=== PATIENT | female | born 2000 | race Caucasian/White ===

== ENCOUNTER → 2020-05-19 10:57 | Outpatient (BNVA) | payer OTHER, SELFPAY | PROVIDERS: PCP Internal Medicine; Visit Provider Advanced Practice Midwife | DX: Z34.90 Encounter for supervision of normal pregnancy, unspecified, unspecified trimester (principal); Z3A.00 Weeks of gestation of pregnancy not specified | CPT/HCPCS: 99211 ==

== ENCOUNTER 2020-05-20 15:06 | Outpatient (REF) | payer OTHER, SELFPAY ==
--- NOTE | 2020-05-20 15:12 | US_ITS ---
EXAMINATION: US OB LIMITED. CLINICAL INFORMATION: Unknown LMP, dating. COMPARISON: None. TECHNIQUE: Routine transabdominal imaging of pelvis is performed. FINDINGS: There is a single live intrauterine fetus in cephalic presentation. heart rate measures 1 44 bpm. motion visualized. On biometry, BPD measures 3.37 cm corresponding to 16 weeks 4 days. Head circumference measures 12.52 cm corresponding 16 weeks and 3 days. Abdominal circumference measures 10.66 cm corresponding 16 weeks 5 days. Femoral length measures 1.96 cm corresponding to 15 weeks 6 days. The composite ultrasound gestational age measures 16 weeks 3 days and NIKKI of 11/01/2020. Estimated weight is 149 g/0 lb 5 oz. Placenta is anterior, grade 0. The right ovary measures 2.8 x 1.5 x 2.5 cm and appears unremarkable. Left ovary measures 2.3 x 1.7 x 2.5 cm and appears unremarkable. US/US OB limited IMPRESSION: Single live intrauterine fetus in cephalic presentation with a ultrasound gestational age of 16 weeks 3 days and NIKKI of 11/01/2020.
== END 2020-05-20 15:07 | disposition home or self-care (01) ==
LOC: HO.US 15:06
PROVIDERS: Visit Provider Advanced Practice Midwife
DX: Z34.90 Encounter for supervision of normal pregnancy, unspecified, unspecified trimester (principal)
CPT/HCPCS: 76815

== ENCOUNTER 2020-05-29 13:48 | Outpatient (REF) | payer OTHER, SELFPAY ==
[2020-05-29 16:04] LABS: MANUAL DIFF FLAG NO
[2020-05-29 16:11] LABS: Basophils Percent Auto 0.3 % (0-2); Eosinophils Absolute Auto 0.1 X10*3/uL (0.0-0.4); Eosinophils Percent Auto 1.3 % (0-4); Hematocrit 36.1 % (37-47); Hemoglobin 11.7 g/dl (12.0-16.0); Imm Gran Abs Auto 0.04 X10*3/uL (0.00-0.03); Imm Gran Pct Auto 0.5 % (0.0-0.4); Lymphocytes Absolute Auto 2.2 X10*3/uL (1.2-4.9); Lymphocytes Percent Auto 25.8 % (20-40); Mean Corpuscular HGB Conc 32.4 g/dl (31.0-35.0); Mean Corpuscular Hemoglobin 28.6 pg (27.0-33.0); Mean Corpuscular Volume 88.3 fL (80-98); Mean Platelet Volume 9.6 fL (9.4-12.3); Monocytes Absolute Auto 0.7 X10*3/uL (0.1-1.2); Monocytes Percent Auto 7.6 % (2-11); Neutrophils Absolute Auto 5.6 X10*3/uL (2.0-8.3); Neutrophils Percent Auto 64.5 % (45-73); Platelet Count 275 X10*3/uL (160-400); Red Blood Count 4.09 X10*6/uL (4.20-5.50); Red Cell Distribution Width 13.8 % (11.0-16.0); White Blood Count 8.7 X10*3/uL (4.8-10.8)
[2020-05-29 16:48] LABS: Amphetamine Screen Urine Not Detected (Not Detect); Barbiturates, Urine Not Detected (Not Detect); Benzodiazepines Screen Urine Not Detected (Not Detect); Cannabinoid Screen Urine Not Detected (Not Detect); Cocaine Screen Urine Not Detected (Not Detect); Opiate Screen Urine Not Detected (Not Detect); Phencyclidine Screen Urine Not Detected (Not Detect)
[2020-05-29 16:56] LABS: Syphilis Screen Nonreactive (Nonreactive)
[2020-05-30 09:22] LABS: Rubella IgG Antibody 6.55 index
[2020-06-01 08:32] LABS: HBsAGNum1 0.15 S/CO (0.00-0.99); Hepatitis B Surface Antigen Negative (Negative); ~HepC Num1 0.08 S/CO (0.00-0.79); ~Hepatitis C Antibody Nonreactive (Nonreactive)
[2020-06-01 08:44] LABS: HIV AB/AG Nonreactive (Nonreactive); HIV Num 1 0.15 S/CO (0.00-0.99)
== END 2020-05-29 13:49 | disposition home or self-care (01) ==
LOC: HO.LAB 13:48
PROVIDERS: Visit Provider Advanced Practice Midwife
DX: Z34.90 Encounter for supervision of normal pregnancy, unspecified, unspecified trimester (principal)
CPT/HCPCS: 36415; 80307; 85025; 86762; 86780; 86787; 86803; 86850; 86900; 86901; 87086; 87340; 87389

== ENCOUNTER 2020-06-02 10:59 | Outpatient (REF) | payer OTHER, SELFPAY ==
[2020-06-03 09:33] LABS: CT PCR NOT DETECTED (Not Detect.); NG PCR NOT DETECTED (Not Detect.)
[2020-06-03 09:55] LABS: BV Int Neg Control Negative (Negative); BV Int Pos Control Positive (Positive)
== END 2020-06-02 11:00 | disposition home or self-care (01) ==
LOC: HO.LAB 10:59
PROVIDERS: Visit Provider Advanced Practice Midwife
DX: Z34.82 Encounter for supervision of other normal pregnancy, second trimester (principal); Z3A.18 18 weeks gestation of pregnancy
CPT/HCPCS: 86850; 86886; 86900; 86901; 87480; 87491; 87510; 87591; 87660; 90686

== ENCOUNTER 2020-06-19 13:01 | Outpatient (REF) | payer OTHER, SELFPAY ==
--- NOTE | 2020-06-19 13:08 | US_ITS ---
EXAMINATION: US OBSTETRICAL CLINICAL INFORMATION: 20-year-old at 20.5 weeks of gestation Suspected anomaly COMPARISON: 05/20/2020 TECHNIQUE: Real-time transabdominal ultrasound was performed using C1-5 megahertz transducer. FINDINGS: A single, active, fetus is seen in vertex presentation. The placenta is fundal, and the amniotic fluid volume is wnl. MEASUREMENTS: 1. Biparietal Diameter: 4.7 cm; 20.2 wks 2. Occipital Frontal Diameter: 5.8 cm 3. Head Circumference: 17.3 cm; 19.6 wks 4. Abdominal Circumference: 15.3 cm; 20.4 wks 5. Femur Length: 3.4 cm; 20.4 wks 6. Humerus Length: 3.2 cm; 20.6 wks 7. Tibia Length: 2.95 cm; 20.6 wks 8. Ulna Length: 3.2 cm; 22.0 wks 9. Lateral ventricle: 0.60 cm 10. Cerebellum: 1.95 cm; 20.0 wks 11. Cisterna Magna: 0.45 cm 12. Nuchal Fold: 2.23 mm 13. Heart Rate: 144 beats per minute Rt ovary: normal Lt ovary: normal Cervical length 3.5 cm on T/A. GESTATIONAL AGE: 1. Established GA: 20.5 wks 2. GA from [facility]: 20.3 wks ESTIMATED DATE OF DELIVERY: 1. Established NIKKI: 11/01/2020 2. NIKKI from [facility]: 11/03/2020 ANATOMY: The visualized anatomy includes but not limited to: 1. Cranium: Normal 2. Intracranial anatomy: cavum septum pellucidi, lateral ventricles, choroid plexus, cerebellum, posterior fossa, third and fourth ventricles. 3. face: orbits, lip/palate, profile, nasal bone 4. Heart: four-chamber view of the heart, ventricular septum, foramen ovale, pulmonary vein, left and right outflow tracts, three-vessel view, 3 vessel trachea view, aortic and ductal arches, situs.. 5. Diaphragm: Normal 6. Abdominal wall: Normal 7. Cord Insertion: Normal 8. Spine: Cervical, thoracic, lumbar, sacral. 9. Stomach: Normal size and shape 10. Right Kidney: Normal 11. Left Kidney: Normal 12. 3 vessel cord: Normal 13. Upper extremity: Open hands, fifth digit. 14. Lower extremity: Tibia, fibula, bilateral feet. 15. Bladder: Normal 16. Genitalia: Female, patient not aware US/US OB /maternal detail IMPRESSION: 1. Single, living, intrauterine with appropriate biometry. 2. Normal survey DISCUSSION: I reviewed today's ultrasound findings. We discussed the limitations of ultrasound in diagnosing aneuploidy and other congenital abnormalities. I reviewed the differences between screening test and diagnostic test. Amniocentesis was discussed and declined. She was informed that the baseline incidence of congenital abnormalities is approximately 3-5%. Not all these conditions are diagnosable in utero. RECOMMENDATIONS: 1. Follow-up when necessary Thank you for allowing me to participate in her care. Visiting time 20 minutes. Majority of this visit was spent reviewing and discussing her care.
== END 2020-06-19 13:02 | disposition home or self-care (01) ==
LOC: HO.US 13:01
PROVIDERS: Visit Provider Advanced Practice Midwife
DX: O35.9XX0 Maternal care for (suspected) fetal abnormality and damage, unspecified, not applicable or unspecified (principal); Z3A.20 20 weeks gestation of pregnancy
CPT/HCPCS: 76811

== ENCOUNTER → 2020-06-30 14:14 | Outpatient (BNVA) | payer OTHER, SELFPAY | PROVIDERS: Visit Provider Advanced Practice Midwife | DX: Z76.89 Persons encountering health services in other specified circumstances (principal) ==

== ENCOUNTER → 2020-07-28 13:20 | Outpatient (BNVA) | payer OTHER, SELFPAY | PROVIDERS: PCP Internal Medicine; Visit Provider Advanced Practice Midwife | DX: Z34.90 Encounter for supervision of normal pregnancy, unspecified, unspecified trimester (principal) | CPT/HCPCS: 81003; 99212 ==

== ENCOUNTER 2020-07-28 14:55 | Outpatient (REF) | payer OTHER, SELFPAY ==
--- NOTE | 2020-07-28 14:58 | US_ITS ---
EXAMINATION: US OBSTETRICAL (BIOPHYSICAL PROFILE) CLINICAL INFORMATION: decelerations in office COMPARISON: Previous exam most recent 06/19/2020 TECHNIQUE: Ultrasound of the pelvis is performed. Biophysical profile is performed over 30 minutes with assessment of breathing, gross body movement, tone, and qualitative amniotic fluid volume. Each matrix is scored 0 or 2, depending if the metric is present. Maximum total score possible is 8. Examination is not intended to assess for anomalies. FINDINGS: POSITION: Cephalic PLACENTA: Anterior. Grade 1-2 AMNIOTIC FLUID INDEX: 14.5 cm CARDIAC ACTIVITY: 152 beats per minute BIOPHYSICAL PROFILE: Motion: 2 Tone: 2 Breathin Amniotic Fluid: 2 Total score: 8 out of 8 US/US OB biophysical profile IMPRESSION: 1. Single intrauterine gestation in cephalic position with anterior placenta. 2. Total biophysical score is 8 (scale 0-8). 3. Amniotic fluid index 14.5 cm. 4. cardiac activity 152 beats per minute.
== END 2020-07-28 14:56 | disposition home or self-care (01) ==
LOC: HO.US 14:55
PROVIDERS: Visit Provider Advanced Practice Midwife
DX: O36.8320 Maternal care for abnormalities of the fetal heart rate or rhythm, second trimester, not applicable or unspecified (principal); Z3A.26 26 weeks gestation of pregnancy
CPT/HCPCS: 76819

== ENCOUNTER 2020-09-07 11:34 | Outpatient (REF) | payer OTHER, SELFPAY ==
[2020-09-07 13:08] LABS: Hematocrit 31.4 % (37-47); Hemoglobin 10.1 g/dl (12.0-16.0); Mean Corpuscular HGB Conc 32.2 g/dl (31.0-35.0); Mean Corpuscular Hemoglobin 26.6 pg (27.0-33.0); Mean Corpuscular Volume 82.6 fL (80-98); Mean Platelet Volume 9.3 fL (9.4-12.3); Platelet Count 250 X10*3/uL (160-400); Red Cell Distribution Width 14.3 % (11.0-16.0); White Blood Count 9.9 X10*3/uL (4.8-10.8)
[2020-09-07 14:03] LABS: Glucose 1 Hour PP 50gm Dose 102 mg/dL (60-140)
[2020-09-08 04:27] LABS: HIV AB/AG Nonreactive (Nonreactive); HIV Num 1 0.09 S/CO (0.00-0.99)
[2020-09-09 07:29] LABS: Syphilis Screen Nonreactive (Nonreactive)
== END 2020-09-07 11:35 | disposition home or self-care (01) ==
LOC: HO.LAB 11:34
PROVIDERS: Visit Provider Advanced Practice Midwife
DX: Z34.90 Encounter for supervision of normal pregnancy, unspecified, unspecified trimester (principal); Z3A.00 Weeks of gestation of pregnancy not specified
CPT/HCPCS: 36415; 85027; 86780; 87389

== ENCOUNTER → 2020-09-16 10:11 | Outpatient (BNVA) | payer OTHER, SELFPAY | PROVIDERS: Visit Provider Obstetrics & Gynecology | DX: Z3A.33 33 weeks gestation of pregnancy (principal) | CPT/HCPCS: 81003; 99212 ==

== ENCOUNTER 2020-10-07 10:08 | Outpatient (REF) | payer OTHER, SELFPAY | END 2020-10-07 10:09 | disposition home or self-care (01) | LOC: HO.LAB 10:08 | PROVIDERS: Visit Provider Advanced Practice Midwife | DX: Z34.92 Encounter for supervision of normal pregnancy, unspecified, second trimester (principal) | CPT/HCPCS: 81003; 87081; 87147; 87491; 87591; 90471; 90715; 99212 ==

== ENCOUNTER 2020-10-14 14:09 | Outpatient (REF) | payer OTHER, SELFPAY ==
[2020-10-16 09:45] LABS: CT PCR NOT DETECTED (Not Detect.); NG PCR NOT DETECTED (Not Detect.)
== END 2020-10-14 14:10 | disposition home or self-care (01) ==
LOC: HO.LAB 14:09
PROVIDERS: Visit Provider Obstetrics & Gynecology
DX: O99.013 Anemia complicating pregnancy, third trimester (principal); D64.9 Anemia, unspecified; Z3A.37 37 weeks gestation of pregnancy; Z79.899 Other long term (current) drug therapy
CPT/HCPCS: 81003; 87491; 87591; 99212

== ENCOUNTER → 2020-10-21 14:13 | Outpatient (BNVA) | payer OTHER, SELFPAY | PROVIDERS: Visit Provider Obstetrics & Gynecology | DX: Z34.93 Encounter for supervision of normal pregnancy, unspecified, third trimester (principal); Z3A.38 38 weeks gestation of pregnancy | CPT/HCPCS: 99212 ==

== ENCOUNTER → 2020-10-28 13:40 | Outpatient (BNVA) | payer OTHER, SELFPAY | PROVIDERS: Visit Provider Advanced Practice Midwife | DX: O36.8190 Decreased fetal movements, unspecified trimester, not applicable or unspecified (principal); Z3A.39 39 weeks gestation of pregnancy | CPT/HCPCS: 59025; 81003; 99212 ==

== ENCOUNTER → 2020-12-15 14:33 | Outpatient (BNVA) | payer OTHER, SELFPAY | PROVIDERS: Visit Provider Obstetrics & Gynecology | DX: Z39.2 Encounter for routine postpartum follow-up (principal); Z30.09 Encounter for other general counseling and advice on contraception | CPT/HCPCS: 99212 ==

== ENCOUNTER 2020-12-17 09:48 | Day surgery (SDC) | payer OTHER, SELFPAY ==
--- NOTE | 2020-12-16 12:17 | HO.ANESPROP2 ---
Documented by User: Elizabeth Gama 12/16/20 12:18 HPI - Anesthesia Eval Consult details Narrative: 20yo F for Bilateral Tubal Ligation Laparoscopic PMFSH Active Problems Active Problems: All Active Problems (Updated 10/28/20 @ 14:57 by Lizz Nguyen CNM) Decreased movement affecting management of mother, antepartum (Acute) Term (Acute) Supervision of normal in second trimester (Acute) Positive depression screening (Acute) (Acute) Past Medical History Medical History No significant past medical history Family History Family History Mother No problems noted. Father No problems noted. Brother Hx of schizophrenia Sister No problems noted. Sister No problems noted. Sister No problems noted. Sister No problems noted. Maternal Grandmother No problems noted. Maternal Grandfather No problems noted. Paternal Grandfather No problems noted. Paternal Grandmother Hx of stroke without residual deficits History of heart attack Social History Social History Household Members: Family Alcohol intake: never Patient Tobacco Use Status: Never used Tobacco Use of substances other than those prescribed or required for medical reasons: Yes Substance Use Type: Marijuana Substance Use Frequency: Occasionally Are you DNR?: No Advance Directives: No Advance Directives Information Provided: Yes service: No Current occupational status: employed Current occupation: [employer] Current occupational exposures/hazards: No Meds Allergies Allergy/AdvReac Type Severity Reaction Status Date / Time No Known Allergies Allergy Verified 12/15/20 14:41 [No Known Allergies*] Exam Exam Date and Time: December 16, 2020 1217 Assessment and Plan Assessment Anesthesia Assessment: Chart Reviewed Documented by User: Luanne Nathan 12/17/20 10:22 PMFSH Past Medical History Medical History No significant past medical history Family History Family History Mother No problems noted. Father No problems noted. Brother Hx of schizophrenia Sister No problems noted. Sister No problems noted. Sister No problems noted. Sister No problems noted. Maternal Grandmother No problems noted. Maternal Grandfather No problems noted. Paternal Grandfather No problems noted. Paternal Grandmother Hx of stroke without residual deficits History of heart attack Social History Social History Household Members: Family Alcohol intake: never Patient Tobacco Use Status: Never used Tobacco Use of substances other than those prescribed or required for medical reasons: Yes Substance Use Type: Marijuana Substance Use Frequency: Occasionally Are you DNR?: No Advance Directives: No Advance Directives Information Provided: Yes service: No Current occupational status: employed Current occupation: [employer] Current occupational exposures/hazards: No Meds Allergies Allergy/AdvReac Type Severity Reaction Status Date / Time No Known Allergies Allergy Verified 12/15/20 14:41 [No Known Allergies*] Exam Airway Mallampati Class: I TM Dist: >3cm Neck ROM: Full Loose/Missing/Broken Teeth: No Heart: RRR Lungs: CTA Assessment and Plan Assessment Anesthesia Assessment: Anesthesia Plan Discussed and Chart Reviewed Final Anesthetic Review NPO: Yes ASA Class: II Final Preanesthetic Review: Meds/Allgs Chart Reviewed, Consent Obtained/Reviewed and Anes Risks/Benef Reviewed Patient Risk: Low Procedure Risk: Intermediate Anesthetic Plan Anesthetic Plan: GA Disposition: Standard PACU
--- NOTE | ~2020-12-17 | XR_ITS ---
EXAMINATION: XR ABDOMEN KUB CLINICAL INDICATION: Surgical instrument broke during procedure, assess for foreign body. COMPARISON: None TECHNIQUE: AP view of the abdomen. Positioning is suboptimal. The lateral margin of the left abdomen and inferior pelvis were not included on this study. FINDINGS: There is a nonobstructive bowel gas pattern. Mild gas and stool are seen within the visualized colon. No radiopaque foreign body is seen in the visualized abdomen and pelvis. The osseous structures are unremarkable. XR/XR abdomen 1V IMPRESSION: 1. Nonobstructive bowel gas pattern. 2. No radiopaque foreign body.
[2020-12-17 10:02] VITALS: BMI 29.4
[2020-12-17 10:05] VITALS: BP 104/65; PULSE 82; RESP 16; TEMP 36.3; O2SAT 98
--- NOTE | 2020-12-17 10:12 | MHC.SHP ---
Pre-Procedural Eval Section A The patient is an INPATIENT: No Changes since office visit: No Cold of Flu in the past 2 weeks, No New Medical Problems, No Changes in Medication and No Patient answered all questions The History & Physical has been completed within 30 days and I have reviewed it.: Yes Section B Chief Complaint: contraception Allergies: Allergies Allergy/AdvReac Type Severity Reaction Status Date / Time No Known Allergies Allergy Verified 12/15/20 14:41 [No Known Allergies*] Plan I have reviewed the history and physical and performed a pertinent physical examination on my patient. No changes have occurred unless specified.
--- NOTE | 2020-12-17 10:12 | W.PM.OPN ---
Operative Note Operative Note Date of Service: 12/17/20 Narrative: Pre-Procedure Diagnosis: unwanted fertility Post-Procedure Diagnosis: unwanted fertility Procedures performed: Laparoscopic bilateral salpingectomy Cafe Lead: none Complications: none Specimens: bilateral fallopian tubes Disposition: Pacu Ms. Ang Tomas is a 20 year old who has completed her family planning and desires a permanent form of sterilization. Surgical Risks: The patient was informed of the risks and benefits of the procedure. Risks included but were not limited to bleeding, infection, injury to the vulva, vagina, or cervix, and uterine perforation. The patient was counseled on the risk of sterilization failure being about 1% on average. The patient was informed that in the event a occurs, the risk of ectopic is increased. I counseled her extensively on the risk of regret, which is highest in women under 30. She reports that in the event she would like more children, she wants to adopt. She does not like and does not want to go through another . The patient expressed understanding of the risks involved, all questions were answered, and the patient consented to the procedure. The patient had valid sterilization consent at the time of the procedure. The patient was taken to the operating room where a time out was performed to confirm correct patient and correct procedure. General anesthesia was established. The patient was then positioned on the operating table in the dorsal lithotomy position with the legs supported using stirrups. All pressure points were padded and a warm blanket was placed to maintain control of core body temperature. The patient was then prepped and draped in the usual sterile fashion. A red rubber catheter was inserted and the bladder emptied. A sponge stick was placed in the vagina for uterine manipulation. Attention was turned to the abdomen where a 5mm vertical infraumbilical incision was made. The 5mm trocar was introduced under direct visualization using the laparoscopy within the sleeve of the trocar. Intra-abdominal placement was not confirmed. The trocar was attempted to be introduced under direct visualization; however again intra-abdominal placement was not achieved. The incision was extended bilaterally for a Russell trocar. The fascia was trasped with baldev clamps and tented up and incised with nava scissors. The fascia was tagged bilaterally with 0-Vicryl. The surgeon's gloved finger was then inserted through the opening in the fascia and the peritoneum was entered bluntly. An S-retractor was then placed along the surgeon's finger and the finger then removed. The Russell trocar was then inserted below the S-retractor. The camera was introduced, intra-abdominal placement visually confirmed, and pneumoperitoneum was established using carbon dioxide. Inspection of the abdominal cavity showed no gross abnormalities and there was no evidence of injury to the bowel, bladder, or vasculature. Attention was turned to the pelvis. The patient was placed into Trendelenburg position. The fallopian tubes and ovaries were visualized bilaterally. There were no abnormalities noted. A small incision was made on the patient's left approximately 2cm superior to and 2cm medial to the left ASIS. A 5mm trocar was introduced through this incision under direct visualization with the laparoscope. The identical procedure was then performed on the right. A grasper was introduced and once in the pelvis was found to be unable to be closed despite multiple attempts. The grasper was attempted to be removed through the trocar; however, the inner piece of the grasper pulled out of the rest of the device. The rest of the grasper was then removed within the sleeve of the trocar; just outside of the body, the jaw of the grasper and two separate pieces fell, one landing on the drape and the other on the floor. An additional pharmacy technician assistant was called to the room while the case continued to examine the pieces of the device and to ascertain whether any pieces may be missing. It was determined that all pieces of the device seemed to be present; however, the decision was made to have an X-ray performed at the end of the case to confirm no piece of the device had been left inside the patient. The fallopian tubes were then inspected bilaterally and the fimbriated ends of the fallopian tube were visualized bilaterally. The distal end of the left tube was grasped and lifted up and being careful to avoid the ovarian vessels, salpingectomy was performed walking the Ligasure device from the distal to the medial end of the tube, where it was cauterized and cut from the uterus at the cornua and removed through the trocar. The identical procedure was then performed on the right. The tubes were sent to pathology for analysis. The pneumoperitoneum was then evacuated. The laparoscope was removed and the trocar sleeves were removed. The sponge stick was removed from the vagina. The skin incisions were closed each with a single interrupted 3-0 Vicryl suture and Dermabond was applied. Good hemostasis was confirmed. Two X-rays were obtained, one of the pelvis and one of the upper abdomen. No foreign objects were identified in either film. The patient was transferred to the recovery room in stable condition. All needle, sponge, and instrument counts were noted to be correct x2 at the end of the procedure.
[2020-12-17] MEDS: Acetaminophen 325 MG TABLET 650 MG PO (10:18)
[2020-12-17 10:21] LABS: UPreg QC Valid YES; Urine Pregnancy NEGATIVE (NEGATIVE)
[2020-12-17] MEDS: Lactated Ringers 1,000 ML 100 ML IVCONT (10:28)
[2020-12-17 13:21] VITALS: BP 130/78; PULSE 60; RESP 16; TEMP 36.2; O2SAT 100
[2020-12-17 13:26] VITALS: BP 125/70; PULSE 68; RESP 16; O2SAT 95
[2020-12-17 13:31] VITALS: BP 120/79; PULSE 85; RESP 16; O2SAT 98
[2020-12-17 13:35] VITALS: BP 124/71; PULSE 79; RESP 16; O2SAT 98
[2020-12-17 13:50] VITALS: BP 115/77; PULSE 76; RESP 16; O2SAT 98
== END 2020-12-17 14:26 | disposition home or self-care (01) ==
PROVIDERS: Nurse Practitioner; Visit Provider Obstetrics & Gynecology
PROC: (CPT 58670; principal; 2020-12-17 11:30)
DX: Z30.2 Encounter for sterilization (principal); F12.90 Cannabis use, unspecified, uncomplicated; Z79.899 Other long term (current) drug therapy
CPT/HCPCS: 58661; 74018; 81025; 88302; J1100; J1170; J2250; J2405; J3010

== ENCOUNTER 2024-06-03 11:05 | Outpatient (REF) | payer OTHER, SELFPAY | END 2024-06-03 11:06 | disposition home or self-care (01) | LOC: HO.LNP 11:05 | PROVIDERS: Visit Provider Obstetrics & Gynecology | DX: N93.9 Abnormal uterine and vaginal bleeding, unspecified (principal) | CPT/HCPCS: 88175; 99202 ==

== ENCOUNTER 2024-06-03 11:05 | Outpatient (AMB) | payer OTHER, SELFPAY ==
--- NOTE | 2024-06-03 11:15 | A.OFFVIS_ITS ---
Intake Visit Reasons: no menses x2 months pelvic pain Hospital Pharmacy Director: Hospital Pharmacy Director Present (Muriel) Accompanied by: Mother Allergies No Known Allergies [No Known Allergies*] Allergy (Verified 06/03/24 11:16) HPI Comments Details: Presenting complaining of irregular menstrual cycles associated with pelvic cramps over the last few months. No previous Pap smear. No associated hirsutism, galactorrhea PFSH Medical History No significant past medical history Family History Mother No problems noted. Father No problems noted. Brother Hx of schizophrenia Sister No problems noted. Sister No problems noted. Sister No problems noted. Sister No problems noted. Maternal Grandmother No problems noted. Maternal Grandfather No problems noted. Paternal Grandfather No problems noted. Paternal Grandmother Hx of stroke without residual deficits History of heart attack Social History Household Members: Family Alcohol intake: never Patient Tobacco Use Status: Never used Tobacco Substance Use Type: Marijuana service: No Current occupational status: employed Current occupation: [employer] Current occupational exposures/hazards: No Female Reproductive History Menstrual Age of Menarche: 11 Total pregnancies: 2 Full term: 2 Review of Systems Const All systems reviewed & are unremarkable except as noted in HPI and below Card Reports as per HPI Resp Reports as per HPI GI Reports as per HPI and Reports no additional complaints Reports as per HPI Physical Exam Const General: cooperative, healthy appearing and comfortable Chest Chest palpation & inspection: normal inspection of the chest and normal palpation of entire chest wall Breast/axilla inspection: normal inspection of the breasts and normal inspection of the axillae Breast/axilla palpation: normal palpation of the breasts, normal palpation of the axillae and no axillary lymphadenopathy Resp Effort & Inspection: normal respiratory effort Auscultation: clear to auscultation bilaterally Percussion: percussion normal Cardio Palpation: normal PMI Rate: regular rate Rhythm: regular rhythm Heart sounds: no murmurs and no rubs Peripheral pulses: Peripheral pulses 2+ throughout GI Inspection: Yes normal to inspection Palpation (GI): Soft to palpation, nontender, no guarding, not rigid and No hepatosplenomegaly present Percussion: Yes normal to percussion Auscultation: normal bowel sounds Rectal Exam - Female: deferred General: Yes bladder normal to palpation External Female Exam: No lesion Speculum Exam - Vagina: normal appearance of the vagina, normal palpation, normal vaginal discharge and not erythematous Speculum Exam - Cervix: normal appearance of the cervix and normal palpation Bimanual exam- vagina & uterus: normal bimanual exam, normal palpation, uterine size normal, bladder normal to palpation, consistency normal and normal palpation Bimanual Exam- Adnexa, other: normal adnexae, no masses and no tenderness Assessment & Plan Assessment & Plan (1) Abnormal uterine bleeding (AUB): Code(s): N93.9 - Abnormal uterine and vaginal bleeding, unspecified Category: Medical Plan: Pap smear done, GC and chlamydia taken CBC, TSH, prolactin, HCG, and pelvic ultrasound ordered. Discussed with the patient the different causes of abnormal bleeding including thyroid disorders, uterine and ovarian pathology and other potential causes. Discussed with the patient the work up including CBC (to r/o anemia), TSH, prolactin, pelvic Ultrasound. All questions answered and the patient verbalized understanding. Instructed the patient to schedule an appointment for follow-up in 2 weeks. Orders: Orders TSH reflex Free T4 Today N93.9 - Abnormal uterine and vaginal bleeding, unspecified Complete Blood Count no Diff Today N93.9 - Abnormal uterine and vaginal bleeding, unspecified US pelvic and transvaginal Today N93.9 - Abnormal uterine and vaginal bleeding, unspecified Pap Smear Today N93.9 - Abnormal uterine and vaginal bleeding, unspecified Prolactin Today N93.9 - Abnormal uterine and vaginal bleeding, unspecified HCG Quantitative Today N93.9 - Abnormal uterine and vaginal bleeding, unspecified Coding Level of Care Code New Pt Level 3 (59232) Diagnoses Abnormal uterine bleeding (AUB) N93.9
== END 2024-06-03 12:19 | disposition home or self-care (01) ==
LOC: HO.HWS 11:05
PROVIDERS: Visit Provider Obstetrics & Gynecology
DX: N93.9 Abnormal uterine and vaginal bleeding, unspecified (principal)
CPT/HCPCS: 99203

== ENCOUNTER 2024-06-03 12:11 | Outpatient (REF) | payer OTHER, SELFPAY ==
[2024-06-03 13:00] LABS: Hematocrit 39.1 % (37.0-47.0); Hemoglobin 12.6 g/dl (12.0-16.0); Mean Corpuscular HGB Conc 32.2 g/dl (31.0-35.0); Mean Corpuscular Hemoglobin 28.1 pg (27.0-33.0); Mean Corpuscular Volume 87.3 fL (80.0-98.0); Mean Platelet Volume 9.6 fL (9.4-12.3); Platelet Count 329 X10*3/uL (160-400); Red Blood Count 4.48 X10*6/uL (4.20-5.50); Red Cell Distribution Width 14.3 % (11.0-16.0)
[2024-06-03 14:08] LABS: HCG Quantitative < 2 mIU/mL
[2024-06-04 08:58] LABS: Prolactin 6.8 ng/mL
== END 2024-06-03 12:12 | disposition home or self-care (01) ==
LOC: HO.LAB 12:11
PROVIDERS: Visit Provider Obstetrics & Gynecology
DX: N93.9 Abnormal uterine and vaginal bleeding, unspecified (principal)
CPT/HCPCS: 36415; 84146; 84443; 84702; 85027

== ENCOUNTER 2024-06-04 08:59 | Outpatient (REF) | payer OTHER, SELFPAY ==
[2024-06-04 12:07] LABS: CT PCR NOT DETECTED (Not Detect.); NG PCR NOT DETECTED (Not Detect.)
== END 2024-06-04 09:00 | disposition home or self-care (01) ==
LOC: HO.LNP 08:59
PROVIDERS: Visit Provider Obstetrics & Gynecology
DX: N93.9 Abnormal uterine and vaginal bleeding, unspecified (principal)
CPT/HCPCS: 87491; 87591

== ENCOUNTER 2024-06-07 13:29 | Outpatient (REF) | payer OTHER, SELFPAY ==
--- NOTE | ~2024-06-07 | US_ITS ---
EXAMINATION: US PELVIS CLINICAL INFORMATION: Abnormal uterine bleeding. COMPARISON: None relevant. TECHNIQUE: Ultrasound of the pelvis is performed using both transabdominal and transvaginal transducers along with Doppler. Transvaginal imaging is performed due to inadequate visualization transabdominally. FINDINGS: Uterus: The uterus is anteverted and measures 6.5 x 3.8 x 5.1 cm. Cervix is sonographically normal. The double wall endometrial thickness is 3 mm. The uterus is smooth in contour and has normal myometrial echogenicity. No visible fibroid. Adnexa: Both ovaries are visualized. There is normal color flow to the adnexa. There is no ovarian torsion. There is trace pelvic ascites, likely physiologic. No adnexal masses. Right ovary measures 2.8 x 1.7 x 2.0 cm. Volume = 4.9 mL. It is sonographically normal. Left ovary measures 3.5 x 1.7 x 3.9 cm. Volume = 9.0 mL. It is sonographically normal. US/US pelvic and transvaginal IMPRESSION: Normal pelvic MRI. No explanation for a AUB. Electronically signed by: Jordan Gaxiola MD 06/25/2024 12:45 PM [facility]
== END 2024-06-07 13:30 | disposition home or self-care (01) ==
LOC: HO.US 13:29
PROVIDERS: Visit Provider Obstetrics & Gynecology
DX: N93.9 Abnormal uterine and vaginal bleeding, unspecified (principal)
CPT/HCPCS: 76830; 76856

== ENCOUNTER → 2024-06-07 13:31 | Outpatient (BNV) | payer OTHER, SELFPAY | PROVIDERS: Visit Provider Radiology Diagnostic Radiology | DX: N93.9 Abnormal uterine and vaginal bleeding, unspecified (principal) | CPT/HCPCS: 76856 ==

== ENCOUNTER 2024-06-26 09:48 | Outpatient (AMB) | payer OTHER, SELFPAY ==
--- NOTE | 2024-06-26 10:01 | A.OFFVIS_ITS ---
Intake Visit Reasons: u/s results Allergies No Known Allergies [No Known Allergies*] Allergy (Verified 06/03/24 11:16) HPI Comments Details: The patient schedule a telehealth visit for follow-up to discuss the results of her abnormal uterine bleeding workup and options of treatment. The following workup was done.: H&H= 12.6/39.1 TSH, prolactin, hCG, GC and chlamydia were negative. Co testing showed LSIL /HPV negative Pelvic ultrasound showed the following: Uterus: The uterus is anteverted and measures 6.5 x 3.8 x 5.1 cm. Cervix is sonographically normal. The double wall endometrial thickness is 3 mm. The uterus is smooth in contour and has normal myometrial echogenicity. No visible fibroid. Adnexa: Both ovaries are visualized. There is normal color flow to the adnexa. There is no ovarian torsion. There is trace pelvic ascites, likely physiologic. No adnexal masses. Right ovary measures 2.8 x 1.7 x 2.0 cm. Volume = 4.9 mL. It is sonographically normal. Left ovary measures 3.5 x 1.7 x 3.9 cm. Volume = 9.0 mL. It is sonographically normal. [facility] Medical History No significant past medical history Family History Mother No problems noted. Father No problems noted. Brother Hx of schizophrenia Sister No problems noted. Sister No problems noted. Sister No problems noted. Sister No problems noted. Maternal Grandmother No problems noted. Maternal Grandfather No problems noted. Paternal Grandfather No problems noted. Paternal Grandmother Hx of stroke without residual deficits History of heart attack Social History Household Members: Family Alcohol intake: never Patient Tobacco Use Status: Never used Tobacco Substance Use Type: Marijuana service: No Current occupational status: employed Current occupation: [employer] Current occupational exposures/hazards: No Female Reproductive History Menstrual Age of Menarche: 11 Review of Systems Const All systems reviewed & are unremarkable except as noted in HPI and below Reports as per HPI and Reports no additional complaints GI Reports no additional complaints Reports no additional complaints Telehealth Telehealth Telehealth Platform: Telephone Location of provider rendering services: practice address Location of patient: address on file Patient Identification confirmed using: Name, : Yes Telehealth method: video Patient verbally consented to treatment: Yes Patient verbally consented to billing insurance company: Yes Patient informed of any privacy concerns related to visit: Yes Assessment & Plan Assessment & Plan (1) Abnormal uterine bleeding (AUB): Code(s): N93.9 - Abnormal uterine and vaginal bleeding, unspecified Category: Medical Plan: Discussed with the patient the results of the work up done and options of treatment including control pills , Mirena IUD, cyclic Provera. All pros, cons, risks and benefits if each option was discussed with the patient and the patient decided to go ahead with BCP so a more detailed discussion re: control pills including mechanism of action, benefits (regular menses, less dysmenorrhea, less risk of ovarian cancer, ...), risks ( DVT, PE, Strokes, HI, ? increased breast ca, others). Instructions were given to use a back- up method for contraception x 1st 2 weeks, and to schedule a 3 months appointment for blood pressure check. Will send prescription with continuous control pills (2) Dysplasia of cervix, low grade (BEAN 1): Code(s): N87.0 - Mild cervical dysplasia Category: Medical Plan: Discussed with the patient the results of her Pap smear/HPV negative at the age of 24 ( mild dysplasia-BEAN 1). Discussed with the patient the sensitivity specificity, positive and negative predictive value in detecting cervical cancer in addition discussed the regression, persistence and progression rates. Recommended Pap smear in 12 months, in a year. Instructions given to the patient to schedule a Pap smear appointment in 1 year. All questions answered the patient verbalized understanding. I spent a total of 20 minutes reviewing the chart, talking to the patient via video and documenting in the medical record. Medications: New L norgest/e.estradiol-e.estrad 0.15 mg-30 mcg (84)/10 mcg (7) 1 tab PO DAILY 84 days 84 ea 0RF Coding Level of Care Code Tele Est Pt Level 3 (20763) Diagnoses Abnormal uterine bleeding (AUB) N93.9 Dysplasia of cervix, low grade (BEAN 1) N87.0
== END 2024-06-26 10:45 | disposition home or self-care (01) ==
LOC: HO.HWS 09:48
PROVIDERS: Visit Provider Obstetrics & Gynecology
DX: N93.9 Abnormal uterine and vaginal bleeding, unspecified (principal); N87.0 Mild cervical dysplasia
CPT/HCPCS: 99213

== ENCOUNTER 2025-03-07 06:02 | Emergency (ER) | payer OTHER, SELFPAY ==
[2025-03-07 06:06] VITALS: BP 99/48; PULSE 68; RESP 18; TEMP 36.5; O2SAT 100; BMI 25.7
--- NOTE | 2025-03-07 06:21 | ED.ABDPAIN ---
HPI - Abdominal Pain General Chief Complaint: Abdominal Pain Stated Complaint: lower left abd pain / kidney stones? Time Seen by Provider: 03/07/25 06:12 Source: patient Mode of arrival: ambulatory Limitations: no limitations History of Present Illness ED Provider: Dr. Zarina Pedraza HPI narrative: Patient comes to the emergency room complaining of left-sided flank pain since yesterday. Patient complaining of mild pain/pressure with urination, denies hematuria. Patient reporting that the flank pain radiates towards the left groin area. Denies nausea or vomiting. Patient admits to having history of kidney stones, states that almost every year she passed his stones. Denies previous history of lithotripsy Related Data Previous Rx's ?Medication ?Instructions ?Recorded vitamins with calcium 1 tab PO DAILY 30 days #30 tabs 05/19/20 no.72-iron 27 mg-folic acid 1 mg tablet ( Plus (calcium carbonate)) ferrous sulfate 325 mg (65 mg 325 mg PO DAILY #30 tabs 09/10/20 iron) tablet acetaminophen 650 mg 650 mg PO Q8H #60 tabs 12/16/20 tablet,extended release ibuprofen 800 mg tablet 800 mg PO Q8H #60 tabs 12/16/20 L norgest/E estradiol-E estrad 1 tab PO DAILY 84 days #84 ea 09/23/24 0.15 mg-30 mcg (84)/10 mcg(7) tabs,3mos Allergies Allergy/AdvReac Type Severity Reaction Status Date / Time No Known Allergies (No Known Allergy Verified 03/07/25 06:07 Allergies*) Review of Systems Review of Systems Constitutional : No Weight loss, No Fever, No Chills, No Night Sweats, No Fatigue, No Malaise ENT/Mouth : No Hearing loss, No Ear Pain, No Nasal Congestion, No Sinus Pain, No Hoarseness, No sore throat, No Rhinorrhea, No Swallowing Difficulty Eyes: No Eye Pain, No Swelling, No Redness, No Foreign Body, No Discharge, No Vision Changes Cardiovascular : No Chest Pain, No SOB, No Dyspnea on Exertion, No Orthopnea, No Edema, No Palpitations Respiratory : No Cough, No Sputum, No Wheezing, No Smoke Exposure, No Dyspnea Gastrointestinal : No Nausea, No Vomiting, No Diarrhea, No Constipation, No abdominal Pain, No Hematochezia, No Melena Genitourinary : no irregular bleeding, No Dysuria, No Urinary Frequency, No Hematuria, No Urinary Incontinence, No Urgency, complaining of left Flank Pain, No Urinary Flow Changes, No Hesitancy Musculoskeletal : No joint pain, No Myalgias, No Joint Swelling Skin : No Skin Lesions, No rash Neuro : No Weakness, No Numbness, No Paresthesias, No Loss of Consciousness, No Dizziness, No Headache Psych : No Anxiety/Panic, No Depression, No SI/HI/AH/VH, No Social Issues, Heme/Lymph: No Bruising, No Bleeding,No Lymphadenopathy Endocrine : No Polyuria, No Polydipsia, No Temperature Intolerance [facility] Past Medical History Medical History (Updated 03/07/25 @ 07:02 by Jeremi Bella MD) Kidney stones Family History Family History Mother No problems noted. Father No problems noted. Brother Hx of schizophrenia Sister No problems noted. Sister No problems noted. Sister No problems noted. Sister No problems noted. Maternal Grandmother No problems noted. Maternal Grandfather No problems noted. Paternal Grandfather No problems noted. Paternal Grandmother Hx of stroke without residual deficits History of heart attack Social History Social History Household Members: Family Alcohol intake: current Alcohol intake frequency: holidays/special occasions only Patient Tobacco Use Status: Never used Tobacco Smoked in Last 30 Days: No Use of substances other than those prescribed or required for medical reasons: No Substance Use Type: Marijuana Advance Directives: No Patient : No service: No Current occupational status: employed Current occupation: [employer] Current occupational exposures/hazards: No Physical Exam ED Exam Exam: Appearance: Alert. Oriented X3. No acute distress. Well-appearing Eyes: Pupils equal, round and reactive to light. ENT: Pharynx normal. Neck: Normal inspection. Neck supple. No lymph nodes noted. No crepitus CVS: Normal heart rate and rhythm. Pulses normal. Normal S1 and S2 Respiratory: No respiratory distress. Breath sounds normal. No Wheezing. No rales Abdomen: Soft and nontender. No rigidity. No distention. Mild CVA tenderness in the left Skin: Skin warm and dry. Normal skin color. Normal skin turgor. Extremities: No lower extremity edema. No Lacerations. No Rash Neuro: Oriented X 3. No motor deficit. No sensory deficit. Moving all extremities. No slurred speech. CN 2 through 12 grossly intact Psych: calm, cooperative, normal affect Vital Signs: Vital Signs - 24 hr 03/07/25 06:06 03/07/25 07:06 Temperature 97.7 F 97.7 F Pulse Rate 68 68 Respiratory Rate 18 18 Blood Pressure 99/48 L 99/48 L Pulse Oximetry 100 100 Oxygen Delivery Method Room Air Room Air BMI result Body Mass Index 25.7 Course Course Course Narrative: Patient complaining of left-sided flank pain, history of kidney stones. At this time, patient does not seem to be in distress. Labs, urine and CT scan pending Sign out given to my colleague Dr. Bella Reevaluation(s) Reevaluation #1: Dr. Bella: The patient is a 24-year-old woman who had presented to the emergency room this morning with left-sided abdominal/flank pain that began yesterday. She apparently felt this was similar to pain she experienced with a kidney stone in the past. While waiting to be seen in the emergency department she believes she passed a kidney stone. A CT of the abdomen and pelvis has been ordered. I assumed care of this patient at change of shift. I went to see the patient before the CAT scan has been performed. She looks entirely well in his having no pain currently. I reviewed records from [facility]. In May of [address] of the abdomen and pelvis that showed a 6 mm stone. Since the patient has pain has resolved and she believes she has passed a stone I have canceled the CAT scan that has been ordered. The patient has requested a referral to Urology. She was given the name and number of [facility]. Otherwise she looks well and will be discharged with the instructions to increase her fluid intake daily. Medical Decision Making Lab Data 03/07/25 06:21 03/07/25 06:21 Labs: Lab Results 03/07/25 Range/Units 06:21 WBC 8.7 (4.8-10.8) X10*3/uL RBC 4.23 (4.20-5.50) X10*6/uL Hgb 11.5 L (12.0-16.0) g/dl Hct 36.1 L (37.0-47.0) % MCV 85.3 (80.0-98.0) fL MCH 27.2 (27.0-33.0) pg MCHC 31.9 (31.0-35.0) g/dl RDW 15.7 (11.0-16.0) % Plt Count 296 (160-400) X10*3/uL MPV 10.0 (9.4-12.3) fL Immature Gran % (Auto) 0.3 (0.0-0.4) % Neut % (Auto) 42.3 L (45-73) % Lymph % (Auto) 46.3 H (20-40) % [place] % (Auto) 8.8 (2-11) % Eos % (Auto) 1.5 (0-4) % Baso % (Auto) 0.8 (0-2) % Lymph # (Auto) 4.0 (1.2-4.9) X10*3/uL [place] # (Auto) 0.8 (0.1-1.2) X10*3/uL Eos # (Auto) 0.1 (0.0-0.4) X10*3/uL Baso # (Auto) 0.1 (0.0-0.2) X10*3/uL Abs Immat Gran (auto) 0.03 (0.00-0.03) X10*3/uL Absolute Neuts (auto) 3.7 (2.0-8.3) x10*3/uL Absolute Nucleated RBC 0.000 (0.0-0.012) X10*3/uL Nucleated RBC % (auto) 0.0 (0.0-0.2) /100WBC Sodium 139 (135-145) mmol/L Potassium 3.7 (3.3-5.1) mmol/L Chloride 106 (96-108) mmol/L Carbon Dioxide 24 (22-29) mmol/L Anion Gap 13 (12-20) BUN 7 L (9-16) mg/dL Creatinine 0.49 L (0.5-1.4) mg/dL Estim Creat Clear Calc 149.1 Estimated GFR > 60 Random Glucose 89 (60-115) mg/dL Calcium 9.7 (8.4-10.2) mg/dL Total Bilirubin 0.3 (0.0-1.0) mg/dL AST 15 (5-31) U/L ALT 12 (0-31) U/L Alkaline Phosphatase 61 (39-117) U/L Total Protein 7.4 (6.5-8.0) g/dL Albumin 4.7 (3.5-5.0) g/dL Beta HCG, Quant < 2 mIU/mL Urine Color Yellow Urine Appearance Clear Urine pH 5.0 (5.0-9.0) Ur Specific [place] 1.020 (1.005-1.025) Urine Protein Negative (Neg-Trace) mg/dL Urine Glucose (UA) Negative (Negative) mg/dL Urine Ketones Negative (Negative) mg/dL Urine Blood Negative (Negative) Urine Nitrite Negative (Negative) Ur Leukocyte Esterase Trace H (Negative) Urine RBC 0-2 (0-2) /HPF Urine WBC 0-5 (0-5) /HPF Ur Squamous Epith Cells 11-20 (0-2) /HPF Urine Bacteria Trace (None Seen) Hyaline Casts 0-2 (0-2) /LPF Critical Care Time Critical Care Time Critical Care Time: Yes Total Critical Care Time: 35 Attestation: I have personally provided critical care time. Time includes review of lab data, radiology results, discussion with consultants, and monitoring for potential decompensation. Intervention performed as documented. Discharge Plan Discharge Clinical Impression: Left flank pain Patient Disposition: Home, Self-Care Instructions: Kidney Stones (ED) Additional Instructions: You may have passed a kidney stone today. You may follow-up with your regular doctor in [place]. Ultimately if you wish to follow up with a specialist for kidney stones you may make an appointment with the urology office. I reviewed records from [facility]. You were last found to have a kidney stone on a CAT scan at [facility] in May of 2021. My hope is that you successfully passed a kidney stone today. Please increase your water intake every day. This will reduce the likelihood of future kidney stones. Follow up either with your regular doctor or with the urology office. Return to the emergency room if significantly worse. Prescriptions: No Action ferrous sulfate 325 mg (65 mg iron) tablet 325 mg PO DAILY Qty: 30 2RF L norgest/e.estradiol-e.estrad 0.15 mg-30 mcg (84)/10 mcg (7) tablets,dose pack,3 month 1 tab PO DAILY 84 Days Qty: 84 0RF ibuprofen 800 mg tablet 800 mg PO Q8H Qty: 60 1RF acetaminophen 650 mg tablet extended release 650 mg PO Q8H Qty: 60 1RF Adacel(Tdap Adolesn/Adult)(PF) 2 Lf-(2.5-5-3-5 mcg)-5Lf/0.5 mL syringe 0.5 ml IM ONCE Qty: 0.5 0RF Plus (calcium carb) 27 mg iron- 1 mg tablet 1 tab PO DAILY 30 Days Qty: 30 11RF Referrals: [facility] [Provider Group, Urology] Interventions: ED Discharge Assessment Last Done: 03/07/25 07:06 Discharge Date/Time: 03/07/25 07:09 Print Language: Wolof
--- OUTSIDE RECORDS SUMMARY | 2025-03-07 06:29 | XMS_ITS | Clinical Summary ---
Author Organization [employer] [facility] Address [id number] [place] [id number] Care Team Providers Care Route [employer] Name Role Phone Maty Hammond MD Primary Care Provider [phone] Surgical History Surgery Date Site/Laterality Comments OTHER SURGICAL HISTORY PROCEDURE: DENIES PREVIOUS SURGERY Medical History Medical History Date Comments Anemia DX:Anemia Social History Tobacco Use Types Packs/Day Years Used Date Smoking Tobacco: Never Smokeless Tobacco: Never Comments Unknown Sex and Gender Information Value Date Recorded Sex Assigned at Not on file Legal Sex Female 5:02 AM EST Gender Identity Not on file Sexual Orientation Not on file Obstetrics History Plan of Treatment Health Maintenance Due Date Last Done Comments Gonorrhea/Chlamydia Screening 2000 HPV Vaccines (1 - 3-dose series) 2015 DTaP,Tdap,and Td Vaccines (1 - Tdap) 2019 Hepatitis B Vaccines (1 of 3 - 19+ 3-dose series) 2019 Cervical Cancer Screening: P ap Smear 2021 HIV Screening 06/19/2022 Hepatitis C Screening 06/19/2022 Social Influencers of Health Screening 06/19/2022 COVID-19 Vaccine (1 - 2023-2 5 season) 2024 Depression Screening 07/17/2024 Influenza Vaccine (#1) 2025 HIB Vaccines Aged Out No longer eligi ble based on patient's age to complete this topic Hepatitis A Vaccines Aged Out No long er eligible based on patient's age to complete this topic IPV Vaccines Aged Out No longer eligi ble based on patient's age to complete this topic MMR Vaccines Aged Out No longer eligi ble based on patient's age to complete this topic Meningococcal ACWY Vaccine Aged Out N o longer eligible based on patient's age to complete this topic Meningococcal B Vaccine Aged Out No l onger eligible based on patient's age to complete this topic Pneumococcal Vaccine: Pediat rics (0 to 5 Years) and At-Risk Patients (6 to 49 Years) Aged Out No longer eligible b ased on patient's age to complete this topic RSV Immunization Patients Un florencio 20 months Aged Out No longer eligible b ased on patient's age to complete this topic Varicella Vaccines Aged Out No longer eligible based on patient's age to complete this topic Care Teams Route Driver [employer] Relationship Specialty Start Date End Date Maty Hammond MD [address] [address] PCP - General Internal Medicine 10/22/20
[2025-03-07 06:41] LABS: MANUAL DIFF FLAG NO
[2025-03-07 06:44] LABS: Appearance Urine Clear; Glucose Urine UA Negative (Negative); PH 5.0 (5.0-9.0); Specific Gravity - Urine 1.020 (1.005-1.025); UMIC TRIGGER UACC YES
[2025-03-07 07:01] LABS: Hematocrit 36.1 % (37.0-47.0); Hemoglobin 11.5 g/dl (12.0-16.0); Imm Gran Abs Auto 0.03 X10*3/uL (0.00-0.03); Imm Gran Pct Auto 0.3 % (0.0-0.4); Lymphocytes Absolute Auto 4.0 X10*3/uL (1.2-4.9); Mean Corpuscular HGB Conc 31.9 g/dl (31.0-35.0); Mean Corpuscular Hemoglobin 27.2 pg (27.0-33.0); Mean Corpuscular Volume 85.3 fL (80.0-98.0); NRBC Abs Auto 0.000 X10*3/uL (0.0-0.012); NRBC Pct Auto 0.0 /100WBC (0.0-0.2); Platelet Count 296 X10*3/uL (160-400); Red Blood Count 4.23 X10*6/uL (4.20-5.50); White Blood Count 8.7 X10*3/uL (4.8-10.8)
[2025-03-07 07:04] LABS: Alanine Aminotransferase 12 U/L (0-31); Albumin Level 4.7 g/dL (3.5-5.0); Alkaline Phosphatase 61 U/L (39-117); Anion Gap 13 (12-20); Aspartate Amino Transferase 15 U/L (5-31); Blood Urea Nitrogen 7 mg/dL (9-16); Calcium 9.7 mg/dL (8.4-10.2); Carbon Dioxide 24 mmol/L (22-29); Chloride 106 mmol/L (96-108); Creatinine Clr Calc Pharmacy 149.1; Estimated Glomerular Filt Rate > 60; Potassium 3.7 mmol/L (3.3-5.1); Sodium 139 mmol/L (135-145); Total Protein 7.4 g/dL (6.5-8.0)
[2025-03-07 07:06] VITALS: BP 99/48; PULSE 68; RESP 18; TEMP 36.5; O2SAT 100
== END 2025-03-07 07:09 | disposition home or self-care (01) ==
PROVIDERS: Emergency Medicine; Emergency Provider Emergency Medicine
DX: R10.9 Unspecified abdominal pain (principal); Z87.442 Personal history of urinary calculi
CPT/HCPCS: 36415; 80053; 81001; 84702; 85025; 99283; 99284